=== PATIENT | female | born 1985 | race Caucasian/White ===

== ENCOUNTER 2018-02-13 17:07 | Emergency (ER) | payer MEDICAID ==
--- NOTE | 2018-02-13 18:04 | EDM.PDOC ---
ED HPI GENERAL MEDICAL PROBLEM - General Chief Complaint: Bite:Animal, Insect Stated Complaint: BITE ON LEFT FOOT,SWELLING Time Seen by Provider: 02/13/18 18:00 Source of Information: Reports: Patient History Limitations: Reports: No Limitations - History of Present Illness INITIAL COMMENTS - FREE TEXT/NARRATIVE: 33-year-old female got bit by something on her left foot 4 hours ago, now has swelling and tenderness and is concerned. She took 2 Benadryl. No generalized response or shortness of breath or wheezing. Onset: Sudden Duration: Hour(s): (4 hours ago) Location: Reports: Lower Extremity, Left Severity: Mild Associated Symptoms: Reports: No Other Symptoms left foot Pain Score (Numeric/FACES): 0 - Related Data Allergies Allergy/AdvReac Type Severity Reaction Status Date / Time No Known Allergies Allergy Verified 02/13/18 17:29 Home Meds: Home Meds NK [No Known Home Meds] 02/13/18 [History] Past Medical History - Past Health History Medical/Surgical History: Denies Medical/Surgical History - Past Surgical History Female Surgical History: Reports: Section Social & Family History - Tobacco Use Smoking Status *Q: Never Smoker - Recreational Drug Use Recreational Drug Use: No ED ROS GENERAL - Review of Systems Review Of Systems: See Below Constitutional: Denies: Fever Respiratory: Denies: Shortness of Breath, Wheezing Cardiovascular: Denies: Chest Pain GI/Abdominal: Denies: Nausea, Vomiting Neurological: Reports: No Symptoms ED EXAM, ANIMAL BITE - Physical Exam Exam: See Below Exam Limited By: No Limitations General Appearance: Alert, No Apparent Distress Respiratory/Chest: No Respiratory Distress, Lungs Clear Extremities: Other (Exam is otherwise limited to the lower left extremity. She has mild to moderate edema of the foot with slight erythema, tenderness to palpation and an apparent bite on the large toe.) Course - Vital Signs Last Recorded V/S: Last Vital Signs Temp 97.8 F 02/13/18 17:28 Pulse 85 02/13/18 17:28 Resp 16 02/13/18 17:28 BP 137/88 02/13/18 17:28 Pulse Ox 97 02/13/18 17:28 - Re-Assessments/Exams Free Text/Narrative Re-Assessment/Exam: 02/13/18 18:03 patient was encouraged to take an anti-inflammatory for the next couple of days , she can continue Benadryl if that helps and cool compresses and wrapping may help. This is a localized immune response and should resolve without further treatment but if she worsens she can return anytime. Departure - Departure Time of Disposition: 18:40 Disposition: Home, Self-Care 01 Condition: Good Clinical Impression: Bug bite Qualifiers: Encounter type: initial encounter Qualified Code(s): W57.XXXA - Bitten or stung by nonvenomous insect and other nonvenomous arthropods, initial encounter - Discharge Information Instructions: Insect Bite, Adult, [id number] Referrals: PCP,None [Primary Care Provider] - Forms: ED Department Discharge Care Plan Goals: Cool compresses or ice along with wrapping may help swelling. Benadryl and ibuprofen should help as well. He should improve over the next several days, if worsening such as generalized rash or difficulty breathing return for recheck.
== END 2018-02-13 18:00 | disposition home or self-care (01) ==
LOC: JP.ED 17:07
DX: S80.862A Insect bite (nonvenomous), left lower leg, initial encounter (principal); W57.XXXA Bitten or stung by nonvenomous insect and other nonvenomous arthropods, initial encounter
CPT/HCPCS: 99283

== ENCOUNTER 2018-02-21 20:54 | Emergency (ER) | payer MEDICAID ==
--- NOTE | 2018-02-22 00:15 | EDM.PDOC ---
ED HPI GENERAL MEDICAL PROBLEM - General Chief Complaint: Lower Extremity Injury/Pain Stated Complaint: PAIN IN LEFT HIP AND KNEE Time Seen by Provider: 02/21/18 22:15 Source of Information: Reports: Patient History Limitations: Reports: No Limitations - History of Present Illness INITIAL COMMENTS - FREE TEXT/NARRATIVE: This patient fell tonight and landed on her knees and left hip. 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 Painful weight bearing. 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: Musculoskeletal History: Reports: Other (See Below) Other Musculoskeletal History: bulging disc l5 s1 - Infectious Disease History Infectious Disease History: Reports: Chicken Pox - Past Surgical History Female Surgical History: Reports: Section Musculoskeletal Surgical History: Reports: Other (See Below) Other Musculoskeletal Surgeries/Procedures:: pin in left hip Social & Family History - Family History Family Medical History: Noncontributory - Tobacco Use Smoking Status *Q: Never Smoker - Caffeine Use Caffeine Use: Reports: Soda - Recreational Drug Use Recreational Drug Use: No Review of Systems - Review of Systems Review Of Systems: ROS reveals no pertinent complaints other than HPI. ED EXAM, GENERAL - Physical Exam Exam: See Below Exam Limited By: No Limitations General Appearance: Alert, Mild Distress, Obese Extremities: Other (left hip mildly tender but good rom. minor abrasions to knees. NVT all intact.) Course - Vital Signs Last Recorded V/S: Last Vital Signs Temp 37.8 C 02/21/18 21:36 Pulse 91 02/21/18 21:36 Resp 20 02/21/18 21:36 BP 118/76 02/21/18 21:36 Pulse Ox 98 02/21/18 21:36 - Orders/Labs/Meds Orders: Active Orders 24 hr Category Date Time Status Hip Min 2V or 3V w Pelvis Lt [CR] Stat Exams 02/21/18 22:19 Ordered - Radiology Interpretation Free Text/Narrative:: left hip and pelvis nothing acute. Departure - Departure Time of Disposition: 00:13 Disposition: Home, Self-Care 01 Condition: Fair Clinical Impression: Contusion of hip - Discharge Information Referrals: PCP,None [Primary Care Provider] - Additional Instructions: Use crutches. Weight bearing as tolerated. For pain use the Crosby 5/325 1 or 2 every 4 hours as needed. May cause sedation and impair driving. See your doctor if no better in 2-3 days. - My Orders Last 24 Hours: My Active Orders 02/21/18 22:19 Hip Min 2V or 3V w Pelvis Lt [CR] Stat - Assessment/Plan Last 24 Hours: My Active Orders 02/21/18 22:19 Hip Min 2V or 3V w Pelvis Lt [CR] Stat
--- NOTE | 2018-02-22 09:34 | CR ---
Hip Min 2V or 3V w Pelvis Lt CLINICAL HISTORY: Pain, trauma FINDINGS: Patient has a excisions placed in the left femoral neck. There has been previous subcapital fracture. Impression: Previous subcapital fracture of the left femur with the a fixation screw in place. Prior films would be helpful to evaluate for change since initial event
== END 2018-02-22 00:36 | disposition home or self-care (01) ==
LOC: JP.ED 20:54
DX: S70.02XA Contusion of left hip, initial encounter (principal); Z79.899 Other long term (current) drug therapy; W19.XXXA Unspecified fall, initial encounter
CPT/HCPCS: 73502-26-LT; 73502-LT; 99284

== ENCOUNTER 2018-12-27 06:49 | Emergency (ER) | payer MEDICAID ==
[2018-12-27] MEDS ORDERED: methylPREDNISolone Sodium Succinate 125 MG/2 ML SDV IM ONE (07:31)
--- NOTE | 2018-12-27 07:37 | EDM.PDOC ---
ED HPI GENERAL MEDICAL PROBLEM - General Chief Complaint: Respiratory Problem Stated Complaint: sore throat lots of coughing Time Seen by Provider: 12/27/18 07:20 Source of Information: Reports: Patient History Limitations: Reports: No Limitations - History of Present Illness INITIAL COMMENTS - FREE TEXT/NARRATIVE: 33-year-old female with worsening cough and sore throat over the past 5 days, was in the clinic 4 days ago and has been treating the symptoms conservatively but needs to go to work in a couple of days and is getting worse. Increased nasal congestion and sore throat are her main complaints, she's having trouble sleeping. No nausea or vomiting. Also developing right ear pain. Duration: Day(s): (Sick for 5 days) Associated Symptoms: Reports: Cough. 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: Musculoskeletal History: Reports: Other (See Below) Other Musculoskeletal History: bulging disc l5 s1 - Infectious Disease History Infectious Disease History: Reports: Chicken Pox - Past Surgical History Female Surgical History: Reports: Section Musculoskeletal Surgical History: Reports: Other (See Below) Other Musculoskeletal Surgeries/Procedures:: pin in left hip Social & Family History - Family History Family Medical History: Noncontributory - Tobacco Use Smoking Status *Q: Never Smoker - Caffeine Use Caffeine Use: Reports: Coffee, Energy Drinks, Soda - Recreational Drug Use Recreational Drug Use: No ED ROS GENERAL - Review of Systems Review Of Systems: See Below Constitutional: Reports: Malaise HEENT: Reports: Ear Pain (Right ear is hurting), Throat Pain Respiratory: Reports: Cough, Sputum Cardiovascular: Denies: Chest Pain GI/Abdominal: Denies: Abdominal Pain, Nausea, Vomiting Skin: Reports: No Symptoms Neurological: Denies: Headache ED EXAM, GENERAL - Physical Exam Exam: See Below Exam Limited By: No Limitations General Appearance: Alert, No Apparent Distress Eye Exam: Bilateral Eye: Normal Inspection Ears: Other (Right ear canal and tympanic membrane are reddened, left is normal) Throat/Mouth: Normal Inspection Head: Atraumatic Neck: Normal Inspection. No: Lymphadenopathy (R), Lymphadenopathy (L) Respiratory/Chest: No Respiratory Distress, Lungs Clear Neurological: Alert, Oriented Course - Vital Signs Last Recorded V/S: Last Vital Signs Temp 98.8 F 12/27/18 07:21 Pulse 92 12/27/18 07:21 Resp 20 12/27/18 07:21 BP 129/82 12/27/18 07:21 Pulse Ox 97 12/27/18 07:21 - Orders/Labs/Meds Meds: Medications Discontinued Medications Generic Name Dose Route Start Last Admin Trade Name Freq PRN Reason Stop Dose Admin Methylprednisolone Sodium Succinate 125 mg 12/27/18 07:31 12/27/18 07:35 Solu-Medrol IM 12/27/18 07:32 125 mg ONETIME ONE Administration - Re-Assessments/Exams Free Text/Narrative Re-Assessment/Exam: 12/27/18 07:35 This patient likely has a viral bronchitis and upper respiratory infection but is also developing a right otitis media. She was given 125 mg of IM Solu-Medrol to decrease the inflammatory aspect of her cold, and will take a course of Zithromax. I recommended Afrin or Jamison-Synephrine to clear and nose at night and to get plenty of rest and fluids. She can recheck in 2-3 days if not improving satisfactorily. Departure - Departure Time of Disposition: 07:43 Disposition: Home, Self-Care 01 Condition: Good Clinical Impression: Viral URI with cough Right otitis media Qualifiers: Otitis media type: suppurative Chronicity: acute Recurrence: non-recurrent Spontaneous tympanic membrane rupture: without spontaneous rupture Qualified Code(s): H66.001 - Acute suppurative otitis media without spontaneous rupture of ear drum, right ear - Discharge Information Instructions: Upper Respiratory Infection, Adult, [id number] Referrals: PCP,None [Primary Care Provider] - Forms: ED Department Discharge Care Plan Goals: Take antibiotic as prescribed, get rest and fluids and consider using Afrin or Jamison-Synephrine nasal spray the next few days for nasal congestion especially when trying to sleep. Recheck in 2-3 days if not improving satisfactorily.
== END 2018-12-27 07:43 | disposition home or self-care (01) ==
LOC: JP.ED 06:49
DX: J06.9 Acute upper respiratory infection, unspecified (principal); H66.001 Acute suppurative otitis media without spontaneous rupture of ear drum, right ear; Z79.899 Other long term (current) drug therapy
CPT/HCPCS: 96372; 99282; J2930

== ENCOUNTER 2019-10-16 12:18 | Emergency (ER) | payer MEDICAID ==
--- NOTE | 2019-10-16 13:14 | EDM.PDOC ---
ED HPI GENERAL MEDICAL PROBLEM - General Chief Complaint: Respiratory Problem Stated Complaint: LARYNGITIS Time Seen by Provider: 10/16/19 13:01 Source of Information: Reports: Patient History Limitations: Reports: No Limitations - History of Present Illness INITIAL COMMENTS - FREE TEXT/NARRATIVE: Patient presents describing minor sore throat discomfort and change in character of her voice. This began 2 days ago. She has some stuffy and draining nostrils as well. There is an occasional dry cough. She works in a convenience store setting. 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: Musculoskeletal History: Reports: Other (See Below) Other Musculoskeletal History: bulging disc l5 s1 - Infectious Disease History Infectious Disease History: Reports: Chicken Pox - Past Surgical History Female Surgical History: Reports: Section Musculoskeletal Surgical History: Reports: Other (See Below) Other Musculoskeletal Surgeries/Procedures:: pin in left hip Social & Family History - Family History Family Medical History: Noncontributory - Tobacco Use Smoking Status *Q: Never Smoker - Caffeine Use Caffeine Use: Reports: Coffee, Energy Drinks, Soda ED ROS GENERAL - Review of Systems Review Of Systems: Comprehensive ROS is negative, except as noted in HPI. ED EXAM, GENERAL - Physical Exam Exam: See Below Exam Limited By: No Limitations General Appearance: Alert, Mild Distress Nose: Nasal Swelling, Nasal Drainage Throat/Mouth: Inflammation, Other (She has a raspy sounding voice.) Head: Atraumatic Neck: No: Lymphadenopathy (R), Lymphadenopathy (L) Respiratory/Chest: No Respiratory Distress, Lungs Clear Cardiovascular: Regular Rate, Rhythm, Tachycardia Course - Vital Signs Last Recorded V/S: Last Vital Signs Temp 36.8 C 10/16/19 12:41 Pulse 99 10/16/19 12:41 Resp 16 10/16/19 12:41 BP 116/89 10/16/19 12:41 Pulse Ox 96 10/16/19 12:41 - Re-Assessments/Exams Free Text/Narrative Re-Assessment/Exam: 10/16/19 21:01 She has tried DayQuil and other OTC measures. I recommend regular use of ibuprofen 800 mg along with adequate liquid intake. The cough has been particularly bothersome and she was sent with a prescription for benzonatate capsules to be used as directed. If not better in one week or so recheck through the clinic primary care team. I discussed with her that almost all cases of laryngitis/loss of voice are caused by viruses, not bacteria and as such do not require antibiotics. Departure - Departure Time of Disposition: 13:26 Disposition: Home, Self-Care 01 Condition: Good Clinical Impression: Laryngitis, Cough - Discharge Information *PRESCRIPTION DRUG MONITORING PROGRAM REVIEWED*: Not Applicable *COPY OF PRESCRIPTION DRUG MONITORING REPORT IN PATIENT RIO: Not Applicable Instructions: Upper Respiratory Infection, Adult, [id number] Referrals: PCP,None [Primary Care Provider] - Forms: ED Department Discharge Additional Instructions: Maintain adequate fluid intake. Take ibuprofen 800 mg 3 times a day for the next 5 days. Any hard candy is reasonable to keep saliva flowing and reduce throat irritation. Use Devante on a tape capsules as discussed for cough. I expect your symptoms will gradually improve over the next week. Do not return to work tomorrow, 16 October. Return to ER if feeling worse in anyway. Sepsis Event Note - Evaluation Sepsis Screening Result: No Definite Risk - Focused Exam Vital Signs: Vital Signs Temp Pulse Resp BP Pulse Ox 10/16/19 12:41 36.8 C 99 16 116/89 96 10/16/19 12:35 36.8 C 99 16 116/89 96 Date Exam was Performed: 10/16/19 Time Exam was Performed: 20:59
== END 2019-10-16 13:59 | disposition home or self-care (01) ==
LOC: JP.ED 12:18
DX: J04.0 Acute laryngitis (principal)
CPT/HCPCS: 99282